=== PATIENT | male | born 1980 | race Caucasian/White ===

== ENCOUNTER 2016-12-26 19:26 | Emergency (ER) | payer OTHER ==
--- NOTE | ~2016-12-26 | CR72 ---
[facility] A Service of [facility] RADIOLOGY TEXT RESULTS PATIENT: MARINA PENA LOCATION: [facility] : [birth year] UNIT #: [id number] AGE: [address]: Usama Puckett MD SEX: M ORDER DR: [id number] [facility] [address] [place], [place] [address] [id number] E MR#: [id number] Acc #: [id number] NAME: MARINA PENA : 1980 SEX: M STUDY DATE/TIME: 12/26/2016 19:33 UNIT: [facility] ROOM: STUDY DESCRIPTION: CR Chest Single View Portable Attending Physician: Usama Puckett M.D. Ordering Physician: Ed Maximo Styles M.D. Primary Care Physician: Debi Linda Aprn MEDICAL IMAGING REPORT This report is preliminary unless electronic signature is present EXAM Portable chest HISTORY Shortness of air, cough, asthma x1 month. COMPARISON 02/08/2011 FINDINGS Portable view of the chest demonstrates no infiltrates or effusions. Right midlung granuloma. Heart and mediastinum unremarkable. The osseous structures appear normal. IMPRESSION No active disease. Dictated by... Eliel De La Vega M.D. THIS IS AN ELECTRONICALLY VERIFIED REPORT Eliel De La Vega M.D. at 12/27/2016 8:43 PM Adryan TD: 12/27/2016 10:26 JOB #: [id number] MEDICAL IMAGING REPORT COPY
[~2016-12-26 19:26] MED LIST: ADVAIR 250-501 EACH IH; ALBUTEROL17 GM; ALBUTEROL17 GM INH; ALBUTEROL17 GM PO; CIPRO PO; EC-NAPROSYN500 MG PO; PREDNISONE PO; SKELAXIN PO; SYMBICORT INH; ULTRAM PO; VICODIN 5/500 T1 TAB PO
[2016-12-26 20:47] LABS: INFLUENZA A NEG (NEG); INFLUENZA B NEG (NEG)
== END 2016-12-26 21:30 | disposition home or self-care (01) ==
LOC: CED 19:26
PROVIDERS: Emergency Medicine
DX: J45.901 Unspecified asthma with (acute) exacerbation (principal)
CPT/HCPCS: 36415; 71010; 87804; 94640; 96374; 99284; J2930

== ENCOUNTER 2017-03-03 14:45 | Emergency (ER) | payer OTHER ==
--- NOTE | ~2017-03-03 | CR72 ---
[facility] A Service of [facility] RADIOLOGY TEXT RESULTS PATIENT: MARINA PENA LOCATION: [facility] : 80 UNIT #: [id number] AGE: [address]: Varinder Tan MD SEX: M ORDER DR: [id number] [facility] [address] [place], [place] [address] [id number] E MR#: [id number] Acc #: [id number] NAME: MARINA PENA : 1980 SEX: M STUDY DATE/TIME: 03/03/2017 15:56 UNIT: [facility] ROOM: STUDY DESCRIPTION: CR Chest Single View Portable Attending Physician: Varinder Tan M.D. Ordering Physician: Varinder Tan M.D. Primary Care Physician: Debi Linda Aprn MEDICAL IMAGING REPORT This report is preliminary unless electronic signature is present EXAM Frontal chest, 03/03/2017 INDICATIONS 36-year-old male with shortness of air for a week and a half. History of asthma. TECHNIQUE Frontal chest compared with 12/26/2016. FINDINGS Cardiac silhouette within normal limits for technique and rotation to the right. Vascularity is unremarkable. Lungs clear. There are calcified granulomas. No pneumothorax. IMPRESSION 1. Calcified granulomatous changes, otherwise negative frontal chest. No change. Dictated by... Mike Rosario M.D. THIS IS AN ELECTRONICALLY VERIFIED REPORT Mike Rosario M.D. at 03/03/2017 8:43 PM PACHECO/juvencio TD: 03/03/2017 18:19 JOB #: [id number] MEDICAL IMAGING REPORT Page 1 of 1 COPY
== END 2017-03-03 17:30 | disposition home or self-care (01) ==
LOC: CED 14:45
DX: J45.909 Unspecified asthma, uncomplicated (principal)
CPT/HCPCS: 71010; 94640; 99283